=== PATIENT | male | born 1985 | race American Indian/Alaskan Native ===

== ENCOUNTER 2018-05-30 22:07 | Emergency (ER) | payer SELFPAY ==
[2018-05-30 23:52] VITALS: BP 111/67
[2018-05-31] MEDS ORDERED: XYLOCAINE 1% MPF 5 mL INFILTRATI ONE (01:26)
[2018-05-31] MEDS ORDERED: XYLOCAINE 2%/ EPI 1:200,000 INFILTRATI ONE (01:31)
--- NOTE | 2018-05-31 01:50 | Emergency Department Report ---
- General Chief Complaint: Laceration/Recheck/Suture Stated Complaint: LIP LACERATION Time Seen by Provider: 05/31/18 01:25 Source: patient Mode of arrival: Ambulatory Limitations: No Limitations - History of Present Illness Initial Comments: 33-year-old -[place] male presents to the emergency room upper lip left thigh laceration from being accidentally hit with a lotion bottle tonight around 8:30 PM. Patient is unsure of when the last time he had a tetanus shot. He reports no past medical history currently takes no medications on a daily basis and has no known drug allergies. -: This evening (2029) Location: face (upper lip) Place: home Patient Tetanus UTD: No Context: accidental Associated Symptoms: pain - Related Data Allergies Allergy/AdvReac Type Severity Reaction Status Date / Time No Known Allergies Allergy Verified 05/31/18 01:28 ED Review of Systems ROS: Stated complaint: LIP LACERATION Other details as noted in HPI Comment: All other systems reviewed and negative ED Past Medical Hx - Past Medical History Previous Medical History?: No - Surgical History Past Surgical History?: No - Social History Smoking Status: Never Smoker ED Physical Exam - General Limitations: No Limitations - Head Head exam: Present: atraumatic, normocephalic - Eye Eye exam: Present: normal appearance - ENT ENT exam: Present: mucous membranes moist - Neurological Exam Neurological exam: Present: alert, oriented X3 - Psychiatric Psychiatric exam: Present: normal affect, normal mood - Expanded Skin Exam Expanded Type of lesion: Present: laceration Distribution of rash: face Description of rash: Present: other (left upper lip through the vermilion line) ED Course Vital Signs 05/30/18 23:47 Temperature 98.0 F Pulse Rate 75 Respiratory 16 Rate Blood Pressure 111/67 O2 Sat by Pulse 98 Oximetry - Laceration /Wound Repair Upper Face Wound Location: head Wound's Depth, Shape: into muscle, linear Wound Explored: clean Irrigated w/ Saline (ccs): 45 Betadine Prep?: Yes Anesthesia: 1% Lidocaine Volume Anesthetic (ccs): 3 Wound Debrided: minimal Wound Repaired With: sutures Suture Size/Type: 4:0, proline Number of Sutures: 3 Sterile Dressing Applied?: No Progress: Patient tolerated well. ED Medical Decision Making - Medical Decision Making Patient's been evaluated by this provider in fast track. Sutures placed without difficulties. Discussed the patient needs to return in 5-7 days to have sutures removed. Critical care attestation.: If time is entered above; I have spent that time in minutes in the direct care of this critically ill patient, excluding procedure time. ED Disposition Clinical Impression: Laceration of vermilion border of upper lip without complication Qualifiers: Encounter type: initial encounter Qualified Code(s): S01.511A - Laceration without foreign body of lip, initial encounter Disposition: TO HOME OR SELFCARE Is pt being admited?: No Does the pt Need Aspirin: No Condition: Stable Instructions: Laceration (ED), Suture Care (ED) Additional Instructions: Please keep wound clean and dry. You Can Place Neosporin on lips. Please avoid direct sunlight while having sutures in place with oil based products. Please return back to the emergency room in 5-7 days to have sutures removed. Referrals: PRIMARY CARE, [Primary Care Provider] - 3-5 Days
[2018-05-31] MEDS ORDERED: BOOSTRIX IM ONE ×2 (01:57→02:01)
== END 2018-05-31 02:04 | disposition home or self-care (01) ==
LOC: ED 22:07
DX: S01.511A Laceration without foreign body of lip, initial encounter (principal); W22.8XXA Striking against or struck by other objects, initial encounter; Y93.89 Activity, other specified; Y92.89 Other specified places as the place of occurrence of the external cause; Y99.8 Other external cause status
CPT/HCPCS: 90471; 90715